=== PATIENT | male | born 1965 | race Caucasian/White ===

== ENCOUNTER 2021-08-31 01:06 | Day surgery (SDC) | payer OTHER, SELFPAY ==
[2021-08-16 12:59] VITALS: BMI 35.4
--- NOTE | 2021-08-30 12:33 | PM.HPGS ---
History of Present Illness History of Present Illness Consent: Risks, benefits, and alternatives have been discussed and questions answered. Patient agrees to proceed with procedure. Chief complaint: hx of colon polyps Narrative: Jamshid Eason is a 56 year old male referred for colon cancer screening. He had 4 polyps removed about 5 years ago Review of Systems Review of Systems: All systems reviewed & are unremarkable except as noted in HPI and below PMFSH Past Medical History Medical History GERD without esophagitis Family History Family History Father Malignant neoplasm of prostate Mother Family history of diabetes mellitus in first degree relative Social History Social History Smoking status: Former smoker Tobacco type: cigars (1-2 per month) Smoking end date: 10/13/15 Alcohol intake: current Drinks per week: 6 Substance use: current Substance use type: marijuana Living arrangements: with family Spiritual care concerns: No Meds Home Medications and Allergies Home Medications Medication Instructions Recorded Confirmed Type omeprazole magnesium 20 mg 20 mg PO DAILY 08/29/20 08/31/21 History tablet,delayed release Allergies Allergy/AdvReac Type Severity Reaction Status Date / Time No Known Allergies Allergy Unknown Verified 08/31/21 10:15 Exam Resp: Auscultation: clear to auscultation bilaterally Cardio: Rate: regular rate Rhythm: regular rhythm GI: GI Palp: Yes Soft to palpation and No Tenderness to palpation present (GI) Assessment and Plan Assessment and plan (1) Colon cancer screening: Code(s): Z12.11 - Encounter for screening for malignant neoplasm of colon Status: Acute Assessment and Plan: Colonoscopy with possible biopsy or polypectomy or cautery or injection of substances.
[2021-08-31 10:16] VITALS: BP 160/84; PULSE 84; RESP 17; TEMP 35.9; O2SAT 97; BMI 35.6
[2021-08-31] MEDS: LACTATED RINGERS 1,000 ML 150 ML IV CONT (10:20)
--- NOTE | 2021-08-31 11:01 | WPDANESEPPF ---
Anes - Initial Pre Proc Eval Procedure: Operation Date: 08/31/21 11:15 Proposed Procedures p Screening Colonoscopy - Qasim Tavarez MD Date/Time: 08/31/21 11:01 Surgeon: Qasim Tavarez MD Pre Op Diagnosis: hx of colon polyps Patient Data Age: 56 Gender: M Height: 1.93 m Weight: 132.8 kg Last Vital Signs Temp 96.6 F L 08/31/21 10:16 Pulse 84 08/31/21 10:16 Resp 17 08/31/21 10:16 BP 160/84 H 08/31/21 10:16 Pulse Ox 97 08/31/21 10:16 Allergies Allergy/AdvReac Type Severity Reaction Status Date / Time No Known Allergies Allergy Unknown Verified 08/31/21 10:15 Home Medications Medication Instructions Recorded Confirmed Type omeprazole magnesium 20 mg 20 mg PO DAILY 08/29/20 08/31/21 History tablet,delayed release Patient hx anesthesia problems: none Family hx anesthesia problems: none Results Review: All pre-operative results and documents have been reviewed as part of the pre-operative evaluation. [facility] Past Medical History Medical History GERD without esophagitis Family History Family History Father Malignant neoplasm of prostate Mother Family history of diabetes mellitus in first degree relative Social History Social History Smoking status: Former smoker Tobacco type: cigars (1-2 per month) Smoking end date: 10/13/15 Alcohol intake: current Drinks per week: 6 Substance use: current Substance use type: marijuana Living arrangements: with family Spiritual care concerns: No Anes - Eval Final PreProcedure Day of Procedure 08/31/21 11:01 Patient weight: obese Heart: regular rate and rhythm Lungs: clear to auscultation Airway: Mallampati scale class II Neurological: alert and oriented Last oral intake: >/= 8 hours ASA classification: II Emergent: no Anesthetic plan: proceed Anesthesia type and monitoring: general GIVS and standard monitoring Results Review: All pre-operative results and documents have been reviewed as part of the pre-operative evaluation. Informed Consent: The patient's anesthetic plan and its attendant risks and benefits were discussed with the patient/family/POA. Questions were solicited and answers provided to the satisfaction of the patient/family/POA.
[2021-08-31] MEDS: SIMETHICONE ORAL SUSPENSION 20 MG/0.3 ML 30 ML BOTTLE 0.6 ML IRRIGATION (11:13)
[2021-08-31 11:27] VITALS: BP 132/77; PULSE 87; RESP 18; O2SAT 97
[2021-08-31 11:37] VITALS: BP 151/82; PULSE 75; RESP 19; O2SAT 98
[2021-08-31 11:47] VITALS: BP 148/86; PULSE 76; RESP 22; O2SAT 100
== END 2021-08-31 12:10 | disposition home or self-care (01) ==
PROVIDERS: PCP Family Medicine; Visit Provider Internal Medicine Gastroenterology
PROC: 0DJD8ZZ Inspection of Lower Intestinal Tract, Via Natural or Artificial Opening Endoscopic (ICD-10-PCS; CPT 45378; principal; 2021-08-31 11:15)
DX: Z12.11 Encounter for screening for malignant neoplasm of colon (principal); K57.30 Diverticulosis of large intestine without perforation or abscess without bleeding; K21.9 Gastro-esophageal reflux disease without esophagitis; Z87.891 Personal history of nicotine dependence; F12.90 Cannabis use, unspecified, uncomplicated; E66.9 Obesity, unspecified; Z68.35 Body mass index [BMI] 35.0-35.9, adult
CPT/HCPCS: 45378; J2704; J7120

== ENCOUNTER 2023-12-12 14:10 | Outpatient (CLI) | payer BC, SELFPAY ==
--- NOTE | 2023-12-12 14:33 | ECHO_ITS ---
Patient Info Name: Jamshid Eason Age: 58 years : 1965 Gender: Male Ht: 76 in Wt: 295 lbs BSA: 2.72 m2 HR: 91 bpm BP: 167 / 97 mmHg Technical Quality: Fair Exam Date: 12/12/2023 2:38 PM Exam Location: Echo Lab Patient Status: Outpatient Admit Date: 12/12/2023 Staff Ordering Physician: Kurt Whittaker DO Sleeve Setter Lockstitch: Debbie Hamlin RDCS Attending Provider: Kurt Whittaker DO Referring Physician: Panfilo RODRIGUEZ; Exam Type: CA echo dop color flow w con Study Info Indications R01.1 - Cardiac murmur, unspecified Complete two-dimensional, color flow and Doppler transthoracic echocardiogram is performed with contrast to opacify the left ventricle and to improve the deliniation of the left ventricle endocardial borders. Contrast/Agitated Saline Contrast/Ag. Saline: Definity Amount: 2.00 ml Administered By: Debbie Hamlin [facility] New IV Access: Left Site Condition: IV removed Summary 1. Definity contrast administered improved wall motion interpretation. 2. Left ventricular chamber dimension is moderately enlarged. 3. Left ventricular systolic function is normal, estimated at 55-60%. 4. There is mild concentric increased left ventricular wall thickness. 5. The left ventricular diastolic function is grade I diastolic dysfunction. 6. E/e' 12 is mildly elevated. 7. There is moderate aortic valve sclerosis. 8. There is moderate aortic valve stenosis with a peak velocity of 395.23 cm/s, mean gradient of 36 mmHg, and aortic valve area of 1.20 cm2. 9. There is mild aortic valve regurgitation. 10. The mitral valve has moderately calcified annulus. 11. There is trace tricuspid valve regurgitation. 12. No pulmonary hypertension, estimated pulmonary arterial systolic pressure is 30 mmHg. 13. The aortic root size at the sinus of Valsalva is mildly dilated at 4.2 cm. Left Ventricle E/e' 12 is mildly elevated. Definity contrast administered improved wall motion interpretation. Left ventricular chamber dimension is moderately enlarged. Left ventricular systolic function is normal, estimated at 55-60%. There is mild concentric increased left ventricular wall thickness. The left ventricular diastolic function is grade I diastolic dysfunction. Right Ventricle Right ventricular chamber dimension is normal. Right ventricular systolic function is normal. Left Atria Left atrial chamber dimension is normal. Right Atria Right atrial chamber dimension is normal. Aortic Valve The aortic valve is trileaflet. There is moderate aortic valve sclerosis. There is moderate aortic valve stenosis with a peak velocity of 395.23 cm/s, mean gradient of 36 mmHg, and aortic valve area of 1.20 cm2. There is mild aortic valve regurgitation. Pulmonic Valve There is no pulmonic regurgitation. Mitral Valve The mitral valve has moderately calcified annulus. There is no mitral valve stenosis. There is no mitral valve regurgitation. Tricuspid Valve There is trace tricuspid valve regurgitation. No pulmonary hypertension, estimated pulmonary arterial systolic pressure is 30 mmHg. Pericardium/Pleural There is no pericardial effusion. Inferior Vena Cava Normal inferior vena cava with >50% collapse upon inspiration consistent with normal right atrial pressure, 5 mmHg. Aorta The aortic root size at the sinus of Valsalva is mildly dilated at 4.2 cm. Left Ventricular Outflow Tract Name Value Normal
[2023-12-12] MEDS: PERFLUTREN LIPID MICROSPHERES 1.5 ML VIAL DILUTED TO 10 ML TOTAL VOLUME IV PUSH (15:45)
--- NOTE | 2023-12-12 16:17 | IVDEFINITY ---
Prior to administration of IV Definity the patient was educated on the risks and benefits of the imaging enhancing agent including potential adverse side effects. The patient verbalized understanding. Allergies were verified. No exclusion criteria were identified and at least one of the following inclusion criteria were met: 1) physician request, 2) patient technically difficult to image (per the [place] [employer] Echocardi[employer] guidelines of two or more segments not discernable within the apical view), or 3) questionable left ventricular function. ?
== END 2023-12-12 14:11 | disposition home or self-care (01) ==
PROVIDERS: PCP Family Medicine; Visit Provider Internal Medicine Cardiovascular Disease
DX: R01.1 Cardiac murmur, unspecified (principal)
CPT/HCPCS: C8929; Q9957

== ENCOUNTER 2024-06-10 16:04 | Outpatient (CLI) | payer BC, SELFPAY ==
--- NOTE | ~2024-06-10 | XR_ITS ---
EXAMINATION: XR chest 2V 06/10/2024 16:19 INDICATION: Dyspnea PROCEDURE: 2 view chest COMPARISON: No prior studies for comparison. FINDINGS: The lungs are clear. The cardiomediastinal silhouette is within normal limits. There are no pleural effusions. There is no pneumothorax suspected. IMPRESSION: 1: NO ACUTE CARDIOPULMONARY DISEASE. Reviewed, dictated and finalized at location B.
== END 2024-06-10 16:05 | disposition home or self-care (01) ==
LOC: ANHIMG 16:10
PROVIDERS: PCP Family Medicine; Visit Provider Nurse Practitioner Family
DX: R06.09 Other forms of dyspnea (principal)
CPT/HCPCS: 71046

== ENCOUNTER 2024-06-18 09:05 | Outpatient (CLI) | payer BC, SELFPAY ==
--- NOTE | 2024-06-18 16:23 | WPDSIXMINUTE ---
Six Minute Walk Procedure Procedure Performed Pulmonary Stress Test (6 min walk) Six Minute Walk Six Minute Walk: This is a 6 minute walk test. The test was performed and interpreted in accordance with the 2014 ERS/ATS task force guidelines. Findings: The patient's resting room air oxygen saturation measured by pulse oximetry was 97% and heart rate was 75 bpm. Patient ambulated for 305 meters and oxygen saturation remained 94 to 100%. Heart rate at the end of the study was 105 bpm. The patient did not qualify for supplemental oxygen at rest or with ambulation. There are no prior studies for comparison.
--- NOTE | 2024-06-18 16:24 | P.PCNPFT_ITS ---
PFT Procedure Performed PFT Procedure Performed Spirometry with Pre/Post Bronchodilator Plethysmography (Lung Vol) Diffusing Cap (DLCO) Flow Vol Loop PFT Interpretation This is a pulmonary function test with pre and post-bronchodilator spirometry, plethysmography and diffusing capacity. The test was performed and results interpreted in accordance with the 2019 and 2005 ATS/ERS Task Force guidelines respectively using the Global Lung Function Initiative-2012 reference equations. Patient demonstrated good effort and cooperation. Reproducibility criteria were met. The quality of the pre bronchodilator spirometry maneuver was Grade B and post bronchodilator spirometry maneuver was Grade B. Findings: Spirometry: The contour of the pre bronchodilator expiratory flow tracing demonstrates the knee pattern and 1 of 3 maneuvers and a saw tooth pattern in 2 of 3 maneuvers. The contour of the expiratory flow tracing in the post bronchodilator maneuvers demonstrates the knee pattern in 2 of 3 maneuvers that is more pronounced than the pre bronchodilator maneuver and a saw tooth pattern in 1 of 3 maneuvers. The contour the inspiratory flow tracing is normal. The pre bronchodilator FVC is 3.28 L, 61% predicted. The pre bronchodilator FEV1 is 1.95 L, 48% predicted. The pre bronchodilator FEV1:FVC ratio is 59%. The post bronchodilator FVC is 3.79 L, representing a 15% increase. The post bronchodilator FEV1 is 2.69 L, representing a 38% increase. The post bronchodilator FEV1:FVC ratio 71%. Plethysmography: The total lung capacity is 8.05 L, 103% predicted. The functional residual capacity is 3.77 L, 92% predicted. The residual volume is 3.73 L, 153% predicted. The residual volume: Total lung capacity ratio is 46%. Diffusing capacity: The diffusing capacity unadjusted for hemoglobin and carboxyhemoglobin is 28.5, 94% predicted. The diffusing capacity adjusted for a lveolar volume is 5.11, 126% predicted. Impression: There is a reproducible knee pattern of the expiratory flow tracing which can be a normal variant or pathologic and has been attributed to a choke point section of the bronchial tree. The normal variant is more common in younger female patients, decreases with age and is more pronounced in the post bronchodilator efforts. The pattern has also been described with kyphosis, kyphoscoliosis, central obstructing mass, and post lung transplantation. The contour the expiratory flow tracing demonstrates a reproducible oscillating or sawtooth pattern. This is usually generated by air flow disturbances in the upper airway are from tremors of the respiratory muscles. This has been associated with sleep apnea, obesity, snorers without obstructive sleep apnea, upper airway injury, upper airway stenosis, tracheobronchomalacia, neuromuscular disorders with bulbar involvement, burn injury of the upper airway, diaphragmatic myoclonus, and herpes zoster of abdominal muscles. Clinical correlation is recommended. There is a severe obstructive abnormality. There is significant improvement after inhaling a single dose of albuterol. The increase in residual volume to total lung volume ratio is consistent with hyperinflation from an obstructive abnormality. The diffusing capacity is normal. There are no prior studies for comparison
== END 2024-06-18 09:06 | disposition home or self-care (01) ==
LOC: ANHPFT 09:09
PROVIDERS: PCP Family Medicine; Visit Provider Nurse Practitioner Family
DX: R06.09 Other forms of dyspnea (principal); R94.2 Abnormal results of pulmonary function studies
CPT/HCPCS: 94060; 94618; 94726; 94729

== ENCOUNTER 2025-01-12 12:08 | Outpatient (CLI) | payer BC, SELFPAY ==
--- NOTE | 2025-01-12 12:24 | ECHO_ITS ---
Patient Info Name: Jamshid Eason Age: 59 years : 1965 Gender: Male Ht: 76 in Wt: 297 lbs BSA: 2.73 m2 Technical Quality: Good Exam Date: 01/12/2025 12:39 PM Exam Location: Echo Lab Patient Status: Outpatient Admit Date: 01/12/2025 Staff Ordering Physician: Kurt Whittaker DO Crts: Anai Willoughby RDCS Attending Provider: Kurt Whittaker DO Referring Physician: Panfilo RODRIGUEZ; Exam Type: CA echo dop color flow w con Study Info Indications I35.0 - Nonrheumatic aortic (valve) stenosis Complete two-dimensional, color flow and Doppler transthoracic echocardiogram is performed. Summary 1. Complete two-dimensional, color flow and Doppler transthoracic echocardiogram is performed. 2. Left ventricular chamber dimension is moderately enlarged. 3. Left ventricular systolic function is normal, estimated at 55-60%. 4. There is moderate concentric increased left ventricular wall thickness. 5. The left ventricular diastolic function is indeterminate. Tissue doppler was not performed. 6. Left atrial chamber dimension is mildly enlarged. 7. The aortic valve is bicuspid. 8. There is severe aortic valve sclerosis. 9. There is severe aortic valve stenosis with a peak velocity of 469.03 cm/s, mean gradient of 57 mmHg, and aortic valve area of 0.64 cm2. 10. There is mild aortic valve regurgitation. 11. The mitral valve has moderately calcified annulus. 12. No pulmonary hypertension, estimated pulmonary arterial systolic pressure is 29 mmHg. Left Ventricle The left ventricular diastolic function is indeterminate. Tissue doppler was not performed. Left ventricular chamber dimension is moderately enlarged. Left ventricular systolic function is normal, estimated at 55-60%. There is moderate concentric increased left ventricular wall thickness. Right Ventricle Right ventricular systolic function is normal and with normal TAPSE 2.2 cm. Right ventricular chamber dimension is normal. Left Atria Left atrial chamber dimension is mildly enlarged. Right Atria Right atrial chamber dimension is normal. Aortic Valve The aortic valve is bicuspid. There is severe aortic valve sclerosis. There is severe aortic valve stenosis with a peak velocity of 469.03 cm/s, mean gradient of 57 mmHg, and aortic valve area of 0.64 cm2. There is mild aortic valve regurgitation. Pulmonic Valve There is no pulmonic regurgitation. Mitral Valve The mitral valve has moderately calcified annulus. There is no mitral valve stenosis. There is no mitral valve regurgitation. Tricuspid Valve There is no tricuspid valve regurgitation. No pulmonary hypertension, estimated pulmonary arterial systolic pressure is 29 mmHg. Pericardium/Pleural There is no pericardial effusion. Inferior Vena Cava Normal inferior vena cava with >50% collapse upon inspiration consistent with normal right atrial pressure, 5 mmHg. Aorta The aortic root size at the sinus of Valsalva is normal. Left Ventricular Outflow Tract Name Value Normal LVOT 2D LVOT Diameter 2.14 cm LVOT Doppler LVOT Peak Gradient 2 mmHg LVOT Mean Gradient 2 mmHg LVOT VTI 21.30 cm LVOT VTI/AV VTI Ratio 0.18 LVOT Stroke Volume 76.36 ml LVOT CO 13.16 l/min LVOT CI 4.82 L/min/m2 Pulmonic Valve Name Value Normal PV Doppler PV Peak Gradient 4 mmHg Tricuspid Valve Name Value Normal TV Regurgitation Doppler TR Peak Velocity 244.53 cm/s TR Peak Gradient 21 mmHg Estimated PAP/RSVP RA Pressure 5 mmHg <=5 PA Systolic Pressure 29 mmHg <36 RV Systolic Pressure 29 mmHg <36 Aorta Name Value Normal Ascending Aorta Ao Root Diameter (MM) 3.54 cm Ao Root Diam Index (MM) 1.29 cm/m2 Aortic Valve Name Value Normal AV Doppler AV Peak Velocity 469.03 cm/s AV Peak Gradient 88 mmHg AV Mean Gradient 57 mmHg AV VTI 119.32 cm AV Area (Cont Eq VTI) 0.64 cm2 >=3.00 AV Area (Cont Eq [place]) 0.62 cm2 AV Regurgitation 2D LVOT Area 3.58 cm2 AV Regurgitation Doppler AR Decel Time 2 s AR Decel [place] 212.67 cm/s2 AR PHT 1 s Ventricles Name Value Normal LV Dimensions 2D/MM IVS Diastolic Thickness (2D) 1.71 cm 0.60-1.00 LVID Diastole (2D) 5.11 cm 4.20-5.80 LVIW Diastolic Thickness (2D) 1.60 cm 0.60-1.00 LVID Systole (2D) 3.73 cm 2.50-4.00 LVOT Diameter 2.14 cm LV Mass (2D Cubed) 386.66 g 88.00-224.00 LV Mass Index (2D Cubed) 0.01 g/cm2 0.00-0.01 Relative Wall Thickness (2D) 0.63 LV Fractional Shortening/Ejection Fraction 2D/MM LV Fractional Shortening (2D) 27 % 25-43 LV EF (2D Teicholz) 52 % 52-72 LV Diastolic Volume (4C MOD) 175.03 ml LV EF (4C MOD) 53 % LV Diastolic Volume (2C MOD) 190.14 ml LV EF (2C MOD) 62 % LV Diastolic Volume (BP MOD) 182.78 ml 62.00-150.00 LV Diastolic Volume Index (BP MOD) 0.07 l/m2 0.03-0.07 LV Systolic Volume (BP MOD) 78.71 ml 21.00-61.00 LV Systolic Volume Index (BP MOD) 0.03 l/m2 0.01-0.03 LV EF (BP MOD) 57 % 52-72 LV Diastolic Length (4C) 8.90 cm LV Systolic Length (4C) 7.30 cm LV Stroke Volume (4C MOD) 93.39 ml Atria Name Value Normal LA Dimensions LA Dimension (MM) 3.15 cm 3.00-4.10 LA Volume (4C A-L) 67.56 ml LA Volume (BP A-L) 65.59 ml RA Dimensions RA Area (4C) 15.29 cm2 <=18.00 Report Signatures
--- OUTSIDE RECORDS SUMMARY | 2025-01-12 13:29 | XMS_ITS | Clinical Summary ---
Author Organization [facility] Address [address] [place] [id number] Care Team Providers Care Direct Entry Midwife Name Role Phone Graeme Bledsoe MD Primary Care Provider Allergies No known active allergies Medications Vitamin D3 (VITAMIN D) 50 mcg tablet Take by mouth daily. Active lisinopril (PRINIVIL) 5 MG tablet Take 1 tablet (5 mg total) by mouth daily. Active omeprazole (PRILOSEC) 40 MG capsule Take 1 capsule (40 mg total) by mouth daily. Active Multiple Vitamins-Minera ls (HAIR SKIN & NAILS ADVANCED OR) Take by mouth daily. Active albuterol sulfate HFA 108 (90 Base) MCG/ACT inhaler Inhale 2 puffs into the lungs every 4 (four) hours as needed for Shortness of breath. 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 Family History Medical History Relation Comments Cancer Father lung Hypertension Father Diabetes Mother Hypertension Mother Relation Status Comments Father Mother Alive Social History Tobacco Use Types Packs/Day Years Used Date Smoking Tobacco: Former Cigarettes Q uit: 1996 Smokeless Tobacco: Never Tobacco Cessation:Counseling Given: Not Answered Alcohol Use Standard Drinks/Week Comments Yes 0 (1 standard drink = 0.6 oz pur e alcohol) wine on weekend Sex and Gender Information Value Date Recorded Sex Assigned at Not on file Legal Sex Male 2:32 PM CDT Gender Identity Not on file Sexual Orientation Not on file Last Filed Vital Signs Vital Sign Reading Time Taken Comments Blood Pressure 181/92 08/26/2023 9:49 AM MUSIC MIXER Pulse 69 08/26/2023 9:49 AM MUSIC MIXER Temperature 36.4 C (97.6 F) 08/26/2023 9:49 AM MUSIC MIXER Respiratory Rate 16 08/26/2023 9:49 AM MUSIC MIXER Oxygen Saturation 95% 08/26/2023 9:49 AM MUSIC MIXER Inhaled Oxygen Concentration - - Weight 138.4 kg (305 lb 1.9 oz) 08/26/2023 6:49 AM MUSIC MIXER Height 193 cm (6' 4 ) 08/19/2023 12:37 PM MUSIC MIXER Body Mass Index 37.14 08/19/2023 12:37 PM MUSIC MIXER Plan of Treatment Health Maintenance Due Date Last Done Comments Colorectal Cancer Screening Colonoscopy (10 Years) 1965 Annual Physical 02/15/1968 Hepatitis C 1983 DTaP, Tdap and Td Vaccines ( 1 - Tdap) 02/15/1984 Zoster Vaccines (1 of 2) 2015 COVID-19 Vaccine (2023-2 5 season) 2024 Meningococcal B Vaccine Aged Out No l onger eligible based on patient's age to complete this topic Meningococcal Vaccine Aged Out No juancho alex eligible based on patient's age to complete this topic Pneumococcal Vaccine: Pediat rics (0 to 5 Years) and At-Risk Patients (6 to 64 Years) Aged Out No longer eligible b ased on patient's age to complete this topic RSV Immunizations Under 20 Months Aged Out No longer eligible based on patient's age to complete this topic [place] [address] [place] [address] Care Teams Direct Entry Midwife Relationship Specialty Start Date End Date Graeme Bledsoe MD [address] [place] [address] PCP - General FAMILY PRACTICE 08/23/23
--- OUTSIDE RECORDS SUMMARY | 2025-01-12 13:29 | XMS_ITS | Encounter Summary ---
Author Organization [facility] Address [address] [place] [address] Care Team Providers Care Aquatic Instructor Name Role Phone Graeme Bledsoe MD Primary Care Provider Encounter Details Date Type Department Care Team (Late st Contact Info) Description 08/26/2023 Prep for Procedure [facility] [place] [address] Jamshid Bajwa MD [address] [facility] [address] [place], [place] [id number] Social History Tobacco Use Types Packs/Day Years Used Date Smoking Tobacco: Former Cigarettes Q uit: 1996 Smokeless Tobacco: Never Alcohol Use Standard Drinks/Week Comments Yes 0 (1 standard drink = 0.6 oz pur e alcohol) wine on weekend Sex and Gender Information Value Date Recorded Sex Assigned at Not on file Legal Sex Male 2:32 PM CDT Gender Identity Not on file Sexual Orientation Not on file documented as of this encounter Plan of Treatment Not on file documented as of this encounter Results * PTT, PARTIAL THROMBOPLASTIN TIME (08/23/2023 11:24 AM OUTBOUND SALES CONSULTANT) PTT 34.7 25.1 - 36.5 SEC 08/23/2023 12:32 [address] OUTBOUND SALES CON[address] [facility] 08/23/2023 11:2 4 AM OUTBOUND SALES CONSULTANT Jamshid Bajwa MD LABORATORY Final Res ult [facility] [address] [place] [address], [place] [phone] * PROTIME/INR, VENOUS (08/23/2023 11:24 AM OUTBOUND SALES CONSULTANT) PROTIME 12.4 10.2 - 12.9 SEC 08/23/2023 12:32 PM OUTBOUND SALES CONSULTANT [facility] INR 1.1 08/23/2023 12:32 PM OUTBOUND SALES CONSULTANT [facility] Comment: Recommended INR Therapeutic Goals: 2.0-3.0 Routine Therapy 2.5-3.5 Mechanical Prosthetic Valves (High Risk) 08/23/2023 11:2 4 AM OUTBOUND SALES CONSULTANT Jamshid Bajwa MD LABORATORY Final Res ult Performing Organization Address City/[facility]/ZIP Co de Phone Number [facility] [address] [place] [address], [place] [phone] * CULTURE URINE (08/23/2023 11:24 AM OUTBOUND SALES CONSULTANT) SPEC DESCRIPTION URINE CLEAN CATCH 08/23/2023 11:24 AM OUTBOUND SALES CONSULTANT [facility] SPECIAL REQUESTS NO SPECIAL REQUEST 08/23/2023 11:24 AM OUTBOUND SALES CONSULTANT [facility] CULTURE RESULT NO GROWTH 2 DAYS 08/25/2023 8:40 AM OUTBOUND SALES CONSULTANT [facility] URINE SPECIMEN OBTAINED BY CLEAN CATCH PROCEDURE / Unknown 08/23/2023 11:24 AM OUTBOUND SALES CONSULTANT 08/23/2023 11:27 AM OUTBOUND SALES CONSULTANT Jamshid Bajwa MD MICROBIOLOGY - GENERAL OR DERABLES Final Result [facility] [address] [place] [address], * (ABNORMAL) URINALYSIS (08/23/2023 11:24 AM OUTBOUND SALES CONSULTANT) SPECIMEN TYPE URINE CLEAN CATCH 08/23/2023 11:25 AM OUTBOUND SALES CONSULTANT [facility] COLOR (U) YELLOW 08/23/2023 12:28 PM OUTBOUND SALES CONSULTANT [facility] TRANSPARENCY CLEAR 08/23/2023 12:28 PM [facility] SPECIFIC GRAVITY (U) 1.026 1.001 - 1.030 08/23/2023 12:28 PM [facility] U PH 6.0 5.0 - 9.0 08/23/2023 12:28 PM [facility] LEUKOCYTES (U) NEGATIVE NEGATIVE 08/23/2023 12:28 PM [facility] NITRITES NEGATIVE NEGATIVE 08/23/2023 12:28 PM [facility] PROTEIN RANDOM (U) 10 <30 MG/DL 08/23/2023 12:28 PM [facility] GLUCOSE (U) NORMAL NORMAL MG/DL 08/23/2023 12:28 PM [facility] KETONES MG/DL (U) NEGATIVE NEGATIVE MG/DL 08/23/2023 12:28 PM [facility] UROBILINOGEN 2.0(A) NORMAL MG/DL 08/23/2023 12:28 PM [facility] BILIRUBIN (U) NEGATIVE NEGATIVE MG/DL 08/23/2023 12:28 PM [facility] BLOOD (U) NEGATIVE NEGATIVE 08/23/2023 12:28 PM [facility] URINE SPECIMEN OBTAINED BY CLEAN CATCH PROCEDURE / Unknown 08/23/2023 11:24 AM OUTBOUND SALES CONSULTANT Jamshid Bajwa MD URINE ORDERABLES Final Re sult [facility] [address] [place] [address], [place] [phone] * (ABNORMAL) BASIC METABOLIC PANEL (08/23/2023 11:24 AM OUTBOUND SALES CONSULTANT) Pathologist [facility] GLUCOSE 105(H) 70 - 99 MG/DL 08/23/2023 12:21 PM OUTBOUND SALES CONSULTANT [facility] BUN 11 7 - 18 MG/DL 08/23/2023 12:21 PM [facility] CREATININE S/P/B 0.92 0.7 - 1.3 MG/DL 08/23/2023 12:21 PM [facility] SODIUM S/P/B 139 136 - 145 MMOL/L 08/23/2023 12:21 PM [facility] POTASSIUM S/P/B 4.2 3.5 - 5.1 MMOL/L 08/23/2023 12:21 PM [facility] CHLORIDE S/P/B 106 100 - 108 MMOL/L 08/23/2023 12:21 PM [facility] CO2 26.1 21 - 32 MMOL/L 08/23/2023 12:21 PM [facility] CALCIUM S/P/B 8.9 8.5 - 10.1 MG/DL 08/23/2023 12:21 PM [facility] ANION GAP 6.9 5 - 15 MMOL/L 08/23/2023 12:21 PM [facility] BUN CREATININE RATIO 12.0 6 - 26 08/23/2023 12:21 PM [facility] GFR ESTIMATE >90 >90 ML/MIN/1.7 3 M2 08/23/2023 12:21 PM OUTBOUND SALES CONSULTANT [facility] Comment: NOTE: eGFR is not calculated for patients <18 years of age. This is an estimated GFR calculation using the new CKD EPI creatinine equation without race and so does not require a correction factor for race. This estimated GFR should not be used for calculating drug doses. 08/23/2023 11:2 4 AM OUTBOUND SALES CONSULTANT us Jamshid Bajwa MD LABORATORY Final Res ult [facility] [address] [place] [address], * (ABNORMAL) CBC W/DIFF AUTOMATED (08/23/2023 11:24 AM OUTBOUND SALES CONSULTANT) WBC 8.3 4.5 - 11.0 x10'3/uL 08/23/2023 12:10 PM OUTBOUND SALES CONSULTANT [facility] RBC 4.88 4.70 - 6.10 x10'6/uL 08/23/2023 12:10 PM [facility] HGB 14.9 14.0 - 18.0 G/DL 08/23/2023 12:10 PM [facility] HCT 45.2 43.0 - 54.0 % 08/23/2023 12:10 PM [facility] MCV 92.6 80.0 - 94.0 FL 08/23/2023 12:10 PM OUTBOUND SALES CONSULTANT [facility] MCH 30.5 27.0 - 31.0 PG 08/23/2023 12:10 PM [facility] MCHC 33.0 32.0 - 36.0 G/DL 08/23/2023 12:10 PM [facility] RDW 12.7 11.5 - 14.5 % 08/23/2023 12:10 PM OUTBOUND SALES CONSULTANT [facility] PLT 420(H) 130 - 400 x10'3/uL 08/23/2023 12:10 PM [facility] MPV 9.3 9.3 - 12.2 FL 08/23/2023 12:10 PM [facility] DIFFERENTIAL TYPE AUTOMATED DIFFERENTIAL 08/23/2023 12:10 PM OUTBOUND SALES CONSULTANT [facility] NEUTROPHILS % 61.7 % 08/23/2023 12:10 PM OUTBOUND SALES CONSULTANT [facility] LYMPHOCYTES % 27.1 % 08/23/2023 12:10 PM [facility] MONOCYTES % 10.4 % 08/23/2023 12:10 PM [facility] EOSINOPHILS 0.0 % 08/23/2023 12:10 PM OUTBOUND SALES CONSULTANT [facility] BASOPHILS 0.6 % 08/23/2023 12:10 PM OUTBOUND SALES CONSULTANT [facility] IMMATURE GRANS % 0.2 % 08/23/20 12:10 PM [facility] ABS. NEUTROPHILS TOTAL 5.10 1.80 - 7.70 x10'3/uL 08/23/2023 12:10 PM [facility] ABS. LYMPHOCYTES 2.24 1.00 - 4.80 x10'3/uL 08/23/2023 12:10 PM OUTBOUND SALES CONSULTANT [facility] ABS. MONOCYTES 0.86(H) 0.30 - 0.82 x10'3/uL 08/23/2023 12:10 PM OUTBOUND SALES CONSULTANT [facility] ABS. EOSINOPHILS 0.00(L) 0.04 - 0.54 x10'3/uL 08/23/2023 12:10 PM [facility] ABS. BASOPHILS 0.05 0.01 - 0.08 x10'3/uL 08/23/2023 12:10 PM OUTBOUND SALES CONSULTANT [facility] ABS. IMMATURE GRANULOCYTES 0.02 0.00 - 0.49 x10'3/uL 08/23/2023 12:10 PM OUTBOUND SALES CONSULTANT [facility] 08/23/2023 11:2 4 AM OUTBOUND SALES CONSULTANT us Jamshid Bajwa MD LABORATORY Final Res ult [facility] [address] [place] [address], documented in this encounter Visit Diagnoses Diagnosis Scrotal mass- Primary Other specified disorder of male genital organs Elevated blood pressure reading without diagnosis of hypertension documented in this encounter Care Teams Aquatic Instructor Relationship Specialty Start Date End Date Graeme Bledsoe MD [address] [place] [address] PCP - General FAMILY PRACTICE 08/23/23 documented as of this encounter
== END 2025-01-12 12:09 | disposition home or self-care (01) ==
LOC: ANHCARD 12:10
PROVIDERS: PCP Family Medicine; Visit Provider Internal Medicine Cardiovascular Disease
DX: I35.0 Nonrheumatic aortic (valve) stenosis (principal); I36.1 Nonrheumatic tricuspid (valve) insufficiency
CPT/HCPCS: 93306

== ENCOUNTER 2025-02-03 03:20 | Day surgery (SDC) | payer BC, SELFPAY ==
[2025-02-02 13:21] VITALS: BMI 36.2
[2025-02-03] VITALS (13 sets, daily range): BP systolic 130–178; BP diastolic 80–90; PULSE 60–91; RESP 15–26; TEMP 36.6; O2SAT 94–97; BMI 36.2
--- OUTSIDE RECORDS SUMMARY | 2025-02-03 03:29 | XMS_ITS | Encounter Summary ---
Author Organization [facility] Address [address] [place] [address] Care Team Providers Care Sheet Metal Mechanic Name Role Phone Graeme Bledsoe MD Primary Care Provider Encounter Details Date Type Department Care Team (Late st Contact Info) Description 08/26/2023 Prep for Procedure [facility] [place] [address] Jamshid Bajwa MD 3 [facility] [address] [place], [place] [address] Social History Tobacco Use Types Packs/Day Years [...] on file documented as of this encounter Functional Status * Calculated C-SSRS Risk Score (Lifetime/Recent) Answer Date of Assessment Author Status No Risk Indicated 08/26/2023 6:57 AM Teddy Strauss RN Active * [place] Suicide Severity Rating Scale (Screener/Recent Self-Report) Question Answer Date of Assessment Author Status 1. Wish to be (Past 1 Month) No 08/26/2023 6:57 AM Jessica Strauss RN Active 2. Non-Specific Active Suicidal Thoughts (Past 1 Month) No 08/26/2023 6:57 AM POWER ELECTRONICS RESEARCH ENGINEER Jessica Riggs RN Active 6. Suicidal Behavior (Lifetime) No 08/26/2023 6:57 AM POWER ELECTRONICS RESEARCH ENGINEER Jessica Riggs RN Active documented as of this encounter Plan of Treatment Not on file documented as of this encounter Results * PTT, PARTIAL THROMBOPLASTIN TIME (08/23/2023 11:24 AM POWER ELECTRONICS RESEARCH ENGINEER) PTT 34.7 25.1 - 36.5 SEC 08/23/2023 12:32 PM POWER ELECTRONICS RESEARCH ENGINEER [facility] 08/23/2023 11:2 4 AM POWER ELECTRONICS RESEARCH ENGINEER Jamshid Bajwa MD LABORATORY Final Res ult Performing Organization Address City/[facility]/ZIP Co de Phone Number [facility] [address] [place] [address], [place] [phone] * PROTIME/INR, VENOUS (08/23/2023 11:24 AM POWER ELECTRONICS RESEARCH ENGINEER) PROTIME 12.4 10.2 - 12.9 SEC 08/23/2023 12:32 PM POWER ELECTRONICS RESEARCH ENGINEER [facility] INR 1.1 08/23/2023 12:32 PM POWER ELECTRONICS RESEARCH ENGINEER [facility] Comment: Recommended INR Therapeutic Goals: 2.0-3.0 Routine Therapy 2.5-3.5 Mechanical Prosthetic Valves (High Risk) 08/23/2023 11:2 4 AM POWER ELECTRONICS RESEARCH ENGINEER Jamshid Bajwa MD LABORATORY Final Res ult [facility] [address] [place] [address], [place] [phone] * CULTURE URINE (08/23/2023 11:24 AM POWER ELECTRONICS RESEARCH ENGINEER) SPEC DESCRIPTION URINE CLEAN CATCH 08/23/2023 11:24 AM POWER ELECTRONICS RESEARCH ENGINEER [facility] SPECIAL REQUESTS NO SPECIAL REQUEST 08/23/2023 11:24 AM POWER ELECTRONICS RESEARCH ENGINEER [facility] CULTURE RESULT NO GROWTH 2 DAYS 08/25/2023 8:40 AM POWER ELECTRONICS RESEARCH ENGINEER [facility] URINE SPECIMEN OBTAINED BY CLEAN CATCH PROCEDURE / Unknown 08/23/2023 11:24 AM POWER ELECTRONICS RESEARCH ENGINEER 08/23/2023 11:27 AM POWER ELECTRONICS RESEARCH ENGINEER us Jamshid Bajwa MD MICROBIOLOGY - GENERAL OR DERABLES Final Result [facility] [address] [place] [address], [place] [phone] * (ABNORMAL) URINALYSIS (08/23/2023 11:24 AM POWER ELECTRONICS RESEARCH ENGINEER) SPECIMEN TYPE URINE CLEAN CATCH 08/23/2023 11:25 AM POWER ELECTRONICS RESEARCH ENGINEER [facility] COLOR (U) YELLOW 08/23/2023 12:28 PM POWER ELECTRONICS RESEARCH ENGINEER [facility] TRANSPARENCY CLEAR 08/23/2023 12:28 PM [facility] SPECIFIC GRAVITY (U) 1.026 1.001 - 1.030 08/23/2023 12:28 PM POWER ELECTRONICS RESEARCH ENGINEER [facility] U PH 6.0 5.0 - 9.0 08/23/2023 12:28 PM [facility] LEUKOCYTES (U) NEGATIVE NEGATIVE 08/23/2023 12:28 PM [facility] NITRITES NEGATIVE NEGATIVE 08/23/2023 12:28 PM [facility] PROTEIN RANDOM (U) 10 <30 MG/DL 08/23/2023 12:28 PM [facility] GLUCOSE (U) NORMAL NORMAL MG/DL 08/23/2023 12:28 PM POWER ELECTRONICS RESEARCH ENGINEER [facility] KETONES MG/DL (U) NEGATIVE NEGATIVE MG/DL 08/23/2023 12:28 PM [facility] UROBILINOGEN 2.0(A) NORMAL MG/DL 08/23/2023 12:28 PM [facility] BILIRUBIN (U) NEGATIVE NEGATIVE MG/DL 08/23/2023 12:28 PM [facility] BLOOD (U) NEGATIVE NEGATIVE 08/23/2023 12:28 PM [facility] URINE SPECIMEN OBTAINED BY CLEAN CATCH PROCEDURE / Unknown 08/23/2023 11:24 AM POWER ELECTRONICS RESEARCH ENGINEER us Jamshid Bajwa MD URINE ORDERABLES Final Re sult [facility] [address] [place] [address], [place] [phone] * (ABNORMAL) BASIC METABOLIC PANEL (08/23/2023 11:24 AM POWER ELECTRONICS RESEARCH ENGINEER) GLUCOSE 105(H) 70 - 99 MG/DL 08/23/2023 12:21 PM [facility] BUN 11 7 - 18 MG/DL 08/23/2023 12:21 PM [facility] CREATININE S/P/B 0.92 0.7 - 1.3 MG/DL 08/23/2023 12:21 PM [facility] SODIUM S/P/B 139 136 - 145 MMOL/L 08/23/2023 12:21 PM [facility] POTASSIUM S/P/B 4.2 3.5 - 5.1 MMOL/L 08/23/2023 12:21 PM [facility] CHLORIDE S/P/B 106 100 - 108 MMOL/L 08/23/2023 12:21 PM POWER ELECTRONICS RESEARCH ENGINEER [facility] CO2 26.1 21 - 32 MMOL/L 08/23/2023 12:21 PM [facility] CALCIUM S/P/B 8.9 8.5 - 10.1 MG/DL 08/23/2023 12:21 PM [facility] ANION GAP 6.9 5 - 15 MMOL/L 08/23/2023 12:21 PM [facility] BUN CREATININE RATIO 12.0 6 - 26 08/23/2023 12:21 PM [facility] GFR ESTIMATE >90 >90 ML/MIN/1.7 3 M2 08/23/2023 12:21 PM [facility] Comment: NOTE: eGFR is not calculated for patients <18 years of age. This is an estimated GFR calculation using the new CKD EPI creatinine equation without race and so does not require a correction factor for race. This estimated GFR should not be used for calculating drug doses. 08/23/2023 11:2 4 AM POWER ELECTRONICS RESEARCH ENGINEER Jamshid Bajwa MD LABORATORY Final Res ult [facility] [address] [place] [address], * (ABNORMAL) CBC W/DIFF AUTOMATED (08/23/2023 11:24 AM POWER ELECTRONICS RESEARCH ENGINEER) WBC 8.3 4.5 - 11.0 x10'3/uL 08/23/2023 12:10 PM POWER ELECTRONICS RESEARCH ENGINEER [facility] RBC 4.88 4.70 - 6.10 x10'6/uL 08/23/2023 12:10 PM [facility] HGB 14.9 14.0 - 18.0 G/DL 08/23/2023 12:10 PM POWER ELECTRONICS RESEARCH ENGINEER [facility] HCT 45.2 43.0 - 54.0 % 08/23/2023 12:10 PM POWER ELECTRONICS RESEARCH ENGINEER [facility] MCV 92.6 80.0 - 94.0 FL 08/23/2023 12:10 PM [facility] MCH 30.5 27.0 - 31.0 PG 08/23/2023 12:10 PM POWER ELECTRONICS RESEARCH ENGINEER [facility] MCHC 33.0 32.0 - 36.0 G/DL 08/23/2023 12:10 PM [facility] RDW 12.7 11.5 - 14.5 % 08/23/2023 12:10 PM [facility] PLT 420(H) 130 - 400 x10'3/uL 08/23/2023 12:10 PM [facility] MPV 9.3 9.3 - 12.2 FL 08/23/2023 12:10 PM [facility] DIFFERENTIAL TYPE AUTOMATED DIFFERENTIAL 08/23/2023 12:10 PM [facility] NEUTROPHILS % 61.7 % 08/23/2023 12:10 PM [facility] LYMPHOCYTES % 27.1 % 08/23/2023 12:10 PM [facility] MONOCYTES % 10.4 % 08/23/2023 12:10 PM POWER ELECTRONICS RESEARCH ENGINEER [facility] EOSINOPHILS 0.0 % 08/23/2023 12:10 PM POWER ELECTRONICS RESEARCH ENGINEER [facility] BASOPHILS 0.6 % 08/23/2023 12:10 PM [facility] IMMATURE GRANS % 0.2 % 08/23/20 12:10 PM [facility] ABS. NEUTROPHILS TOTAL 5.10 1.80 - 7.70 x10'3/uL 08/23/2023 12:10 PM POWER ELECTRONICS RESEARCH ENGINEER [facility] ABS. LYMPHOCYTES 2.24 1.00 - 4.80 x10'3/uL 08/23/2023 12:10 PM POWER ELECTRONICS RESEARCH ENGINEER [facility] ABS. MONOCYTES 0.86(H) 0.30 - 0.82 x10'3/uL 08/23/2023 12:10 PM POWER ELECTRONICS RESEARCH ENGINEER [facility] ABS. EOSINOPHILS 0.00(L) 0.04 - 0.54 x10'3/uL 08/23/2023 12:10 PM POWER ELECTRONICS RESEARCH ENGINEER [facility] ABS. BASOPHILS 0.05 0.01 - 0.08 x10'3/uL 08/23/2023 12:10 PM POWER ELECTRONICS RESEARCH ENGINEER [facility] ABS. IMMATURE GRANULOCYTES 0.02 0.00 - 0.49 x10'3/uL 08/23/2023 12:10 PM POWER ELECTRONICS RESEARCH ENGINEER [facility] 08/23/2023 11:2 4 AM POWER ELECTRONICS RESEARCH ENGINEER us Jamshid Bajwa MD LABORATORY Final Res ult [facility] [address] [place] [address], documented in this encounter Visit Diagnoses Diagnosis Scrotal mass- Primary Other specified disorder of male genital organs Elevated blood pressure reading without diagnosis of hypertension documented in this encounter Care Teams Sheet Metal Mechanic Relationship Specialty Start Date End Date Graeme Bledsoe MD [address] [place] [address] PCP - General FAMILY PRACTICE 08/23/23 documented as of this encounter
--- OUTSIDE RECORDS SUMMARY | 2025-02-03 03:29 | XMS_ITS | Clinical Summary ---
Author Organization [facility] Address [address] [place] [address] Care Team Providers Care Bridge Builder Name Role Phone Graeme Bledsoe MD Primary [...] Comments Blood Pressure 181/92 08/26/2023 9:49 AM NEUROLOGY PROFESSOR Pulse 69 08/26/2023 9:49 AM NEUROLOGY PROFESSOR Temperature 36.4 C (97.6 F) 08/26/2023 9:49 AM NEUROLOGY PROFESSOR Respiratory Rate 16 08/26/2023 9:49 AM NEUROLOGY PROFESSOR Oxygen Saturation 95% 08/26/2023 9:49 AM NEUROLOGY PROFESSOR Inhaled Oxygen Concentration - - Weight 138.4 kg (305 lb 1.9 oz) 08/26/2023 6:49 AM NEUROLOGY PROFESSOR Height 193 cm (6' 4 ) 08/19/2023 12:37 PM NEUROLOGY PROFESSOR Body Mass Index 37.14 08/19/2023 12:37 PM NEUROLOGY PROFESSOR Plan of Treatment Health Maintenance Due Date Last Done Comments Colorectal Cancer Screening Colonoscopy (10 Years) 1965 Annual Physical 02/15/1968 Hepatitis C 1983 DTaP, Tdap and Td Vaccines ( 1 - Tdap) 02/15/1984 Pneumococcal Vaccine: 50+ Ye ars (1 of 1 - PCV) 2015 Zoster Vaccines (1 of 2) 2015 COVID-19 Vaccine ( - 2023-2 5 season) 2024 Meningococcal B Vaccine Aged Out No l onger eligible based on patient's age to complete this topic Meningococcal Vaccine Aged Out No juancho alex eligible based on patient's age to complete this topic RSV Immunizations Under 20 Months Aged Out No longer eligible based on patient's age to complete this topic Insurance Care Teams Bridge Builder Relationship Specialty Start Date End Date Graeme Bledsoe MD [address] [place] [address] PCP - General FAMILY PRACTICE 08/23/23
[2025-02-03 09:04] LABS: Basophils Percent Auto 0.6 % (0.2-1.2); Eosinophils Percent Auto 0.1 % (0-4.4); Hematocrit 43.6 % (42.0-52.0); Hemoglobin 14.3 g/dL (14.0-18.0); Immature Granulocyte Absolute 0.02 K/mm3 (0.00-0.031); Immature Granulocyte Percent A 0.3 % (0-0.5); Lymphocytes Percent Auto 23.9 % (18.3-44.2); Mean Corpuscular HGB Conc 32.8 g/dl (32-36); Mean Corpuscular Hemoglobin 30.6 pg (26-34); Mean Corpuscular Volume 93.4 fl (80-100); Mean Platelet Volume 8.9 fl (7.4-10.4); Monocytes Absolute Auto 0.6 K/mm3 (0.1-0.6); Monocytes Percent Auto 8.8 % (2.6-8.5); Neutrophils Absolute Auto 4.4 K/mm3 (1.3-6.7); Neutrophils Percent Auto 66.3 % (45.5-73.1); Platelet Count Result 339 k/mm3 (150-375); Red Blood Count 4.67 M/mm3 (4.6-6.20); Red Cell Distribution Width 12.7 % (11.5-14.5); White Blood Count 6.7 K/mm3 (4.5-10.0)
[2025-02-03 09:20] LABS: Anion Gap 11 mmol/L (4-12); Blood Urea Nitrogen 12 mg/dL (9-20); Carbon Dioxide 23 mmol/L (22-30); Chloride 104 mmol/L (98-107); Estimated CRCL calculation 177 ml/min; Estimated Glomerular Filt Rate > 60; Glucose 122 mg/dL (65-110); Potassium 4.2 mmol/L (3.4-5.0); Sodium 138 mmol/L (137-145)
--- NOTE | 2025-02-03 12:08 | SUR.OPER ---
brachial and femoral venous sheaths pulled in test lab technician. Manual pressure held. hemostasis of brachial vein achieved at 1203. Femoral vein hemostasis achieved at 1208. See test lab technician log for more.
--- NOTE | 2025-02-03 12:37 | P.PCNCC_ITS ---
Cardiac Cath Procedure Note Date of procedure:: 02/03/25 Performing physician:: CATHETERIZATION LABORATORY REPORT Procedure Date: 02/03/2025 Referring Physician: Dr. Whittaker Anesthesia: Versed and Fentanyl were ordered and given in my presence at 1055, procedure ended at 1151. Supervision of nurse, Betina Bryant monitored moderate sedation with 2mg Versed and 100mcg Fentanyl was provided for 56 minutes. Pre-op Diagnosis: Severe aortic stenosis Post-op Diagnosis: Severe aortic stenosis Procedure(s): Left heart catheterization with coronary angiography Access Site: Right radial artery Right brachial vein Right femoral vein Brief History and Clinical Indications: 59-year-old man with severe aortic stenosis was referred for right and left heart cardiac catheterization prior to surgical AVR. All risks, benefits and alternatives to left heart catheterization with or without percutaneous coronary intervention was discussed at length with the patient. Risk of complications including but not limited to bleeding, infection, arrhythmia, stroke, worsening kidney function, blood loss, groin hematoma, limb loss, emergency coronary artery bypass grafting, and even were discussed with the patient and all questions were answered. The patient understood and wished to proceed. Time out called, patient name, date of , medical record number, allergies, procedure performed, identify Jewelry Drilling Machine Operator, patient and staff member concurred with accurate data, procedure carried on. Findings: LEFT HEART CATHETERIZATION FINDINGS: 1. Left main: The left main coronary artery is widely patent. 2. Left anterior descending: The LAD and the diagonal branches are free of angiographic disease. 3. Left circumflex: The left circumflex artery and the main marginal branches are free of angiographic disease. 4. Right coronary artery: The RCA is a moderate caliber dominant vessel with 10- 20% proximal stenosis.. 5. Left ventricle: A. We did not cross the aortic valve given the severe aortic stenosis. 6. Opening AO pressure 130/85 and closing AO pressure 132/93 RIGHT HEART CATHETERIZATION FINDINGS: Pressures (mmHg): RA: 17 (v 22) RV: 43/14 (19) PA: 38/19 (28) PCWP: 22 (v 27) Saturations (%): PA: 69 Arterial: 95 CO/CI: Wes: 4.9/2.6 Description of Procedure: Informed consent signed and placed in the chart. Patient transferred to laborer drying department room. Prepped and draped in usual sterile fashion. 2% lidocaine injected subcutaneously in antecubital area. Brachial vein was accessed using micropuncture technique. 7FR sheath placed. 7F [place] catheter was advanced into the right side of the heart chambers and pressures were measured. The 7 Macanese [place] catheter was unable to be advanced past the right atrium due to some tortuosity in the brachial vein. Therefore we converted to femoral vein access under ultrasound guidance and a 7 Macanese sheath was advanced into the right femoral vein. The [place] Oly catheter was then advanced into the right side of the heart chambers as well as the pulmonary artery and wedge position where pressures were measured and saturations were collected. Hemostasis was achieved by manual pressure. Attention was then turned to the left heart cardiac catheterization part of procedure. 2% lidocaine injected subcutaneously in right wrist area. 22-gauge venipuncture catheter used to access the right radial artery with the Seldinger technique. 6-FR slender sheath placed in right radial artery. Verapamil 2.5mg, and Heparin 5000U was given intraarterial through the sheath. J wire advanced under fluoroscopy. 5F Ultron diagnostic catheter engaged Left Main Coronary Artery. 5F JR4 diagnostic catheter engaged Right Coronary Artery. We attempted to use a WRP catheter for better engagement as the JR4 kept bouncing out of the right coronary artery; however, this was unsuccessful. Multiple orthogonal angiogram obtained and reviewed in it's entirety and deem sufficient. Hemostasis was achieved by application of TR band. Assessment: Mild CAD. Elevated filling pressures secondary to elevated left heart filling pressures likely due to his known severe aortic stenosis. Post Operative Condition: Stable No significant blood loss Disposition: Home Plan: Recommend CT aorta as the ascending aorta appears dilated when the 5 Macanese ultra diagnostic catheter was used to engage the left main coronary artery. Continue with surgical AVR after CT aorta. Bradley Gunderson Interventional Cardiology
== END 2025-02-03 15:11 | disposition home or self-care (01) ==
PROVIDERS: PCP Family Medicine; Visit Provider Internal Medicine
PROC: (CPT 93566; principal; 2025-02-03 10:00)
DX: I35.0 Nonrheumatic aortic (valve) stenosis (principal); I25.10 Atherosclerotic heart disease of native coronary artery without angina pectoris; R06.09 Other forms of dyspnea; I10 Essential (primary) hypertension; R73.03 Prediabetes; K21.9 Gastro-esophageal reflux disease without esophagitis; R01.1 Cardiac murmur, unspecified; F12.90 Cannabis use, unspecified, uncomplicated; Z79.51 Long term (current) use of inhaled steroids; Z87.891 Personal history of nicotine dependence; Z80.42 Family history of malignant neoplasm of prostate
CPT/HCPCS: 36415; 80048; 85025; 93456; C1769; C1887; C1894; J1644; J2003; J2250; J2305; J3010; J7040

== ENCOUNTER 2025-03-03 02:11 | Day surgery (SDC) | payer BC, SELFPAY ==
[2025-03-03] VITALS (9 sets, daily range): BP systolic 144–182; BP diastolic 68–95; PULSE 63–93; RESP 14–20; TEMP 36.7; O2SAT 95–99; BMI 35.9
--- NOTE | 2025-03-03 07:51 | ECHO_ITS ---
Patient Info Name: Jamshid Eason Age: 60 years : 1965 Gender: Male HR: 83 bpm Exam Date: 03/03/2025 8:14 AM Patient Status: unknown Admit Date: 03/03/2025 Exam Type: CA echo transesophageal Complete two-dimensional, color flow and Doppler transesophageal study is performed. Content Producer: Anai Willoughby Attending Provider: Kurt Whittaker DO Summary 1. Left ventricular chamber dimension is normal. 2. Left ventricular systolic function is normal with an ejection fraction of 60-65% by visual estimation. 3. There is moderate concentric increased left ventricular wall thickness. 4. The left ventricular diastolic function is indeterminate as it was not assessed. 5. Left atrial chamber dimension is mildly enlarged. 6. The aortic valve is bicuspid. 7. There is severe aortic valve sclerosis. 8. There is severe aortic valve stenosis. By planimetry valve area is 0.7 cm2. 9. There is mild aortic valve regurgitation. 10. The mitral valve has a mildly calcified annulus. 11. There is trace mitral valve regurgitation. 12. The aortic root size at the sinus of Valsalva is borderline dilated at 4.0 cm. 13. The prox ascending aorta size is moderately dilated but was not measured. Procedure Details Risks/benefits/alternative to LA NENA discuss with patient and he gave informed consent. Patient was monitored electrocardiographically, vitals and pulse ox. He as in sinus rhythm at 75 bpm, BP 160/80 mmHg, pulse ox>96 throughout. Patient given cetacaine spray to posterior oropharynx x2. Patient given Fentanyl 25 mcg IVx1 and Versed 2 mg IV for conscious sedation. He swallowed the [place] NENA probe without incident. Multiple images obtained. Agitated saline injection x1. LA NENA probe withdrawn and no bleed on LA NENA probe tip. Patient tolerated procedure well with no complications. Left Ventricle Left ventricular chamber dimension is normal. Left ventricular systolic function is normal with an ejection fraction of 60-65% by visual estimation. There is moderate concentric increased left ventricular wall thickness. The left ventricular diastolic function is indeterminate as it was not assessed. Right Ventricle Right ventricular chamber dimension is normal. Right ventricular systolic function is normal. Left Atria Left atrial chamber dimension is mildly enlarged. Right Atria Right atrial chamber dimension is normal. Atrial Septum Intact interatrial septum visualized by 2D, color flow and Doppler imaging. Agitated saline injection opacified right side cardiac chambers without shunt to left side cardiac chambers. Atrial Appendage There is no thrombus visualized in the left atrial appendage. Aortic Valve The aortic valve is bicuspid. There is severe aortic valve sclerosis. There is severe aortic valve stenosis. By planimetry valve area is 0.7 cm2. There is mild aortic valve regurgitation. Pulmonic Valve There is no pulmonic regurgitation. Mitral Valve The mitral valve has a mildly calcified annulus. There is no mitral valve stenosis. There is trace mitral valve regurgitation. Tricuspid Valve There is no tricuspid valve regurgitation. Pericardium/Pleural There is no pericardial effusion. Inferior Vena Cava Inferior vena cava is not well visualized. Aorta The aortic root size at the sinus of Valsalva is borderline dilated at 4.0 cm. The prox ascending aorta size is moderately dilated but was not measured. Aortic Valve Name Value Normal AV 2D/MM AV Area (Planimetry) 0.7 cm2 Report Signatures
[2025-03-03] MEDS: fentaNYL CITRATE INJ (*CRX) 100 MCG/2 ML VIAL 25 MCG IV PUSH (08:18)
[2025-03-03] MEDS: MIDAZOLAM HCL (*CRX) 2 MG/2 ML VIAL 1 MG IV PUSH ×3 (08:18→08:23)
== END 2025-03-03 09:39 | disposition home or self-care (01) ==
PROVIDERS: PCP Family Medicine; Visit Provider Internal Medicine Cardiovascular Disease
PROC: (CPT 93312; principal; 2025-03-03 08:00)
DX: I35.2 Nonrheumatic aortic (valve) stenosis with insufficiency (principal); Q23.81 Bicuspid aortic valve; I34.81 Nonrheumatic mitral (valve) annulus calcification; R06.09 Other forms of dyspnea; I10 Essential (primary) hypertension; E66.9 Obesity, unspecified; Z68.36 Body mass index [BMI] 36.0-36.9, adult
CPT/HCPCS: 93312; 93320; 93325; J2250; J3010; J7040

== ENCOUNTER 2025-09-22 07:15 | Outpatient (RCR) | payer BC, SELFPAY | END 2025-09-22 09:27 | disposition home or self-care (01) | LOC: ANHCPREHAB 07:15 | PROVIDERS: PCP Family Medicine; Visit Provider Internal Medicine Cardiovascular Disease | DX: Z95.2 Presence of prosthetic heart valve (principal) | CPT/HCPCS: 93798 ==